=== PATIENT | male | born 1990 | race Caucasian/White ===

== ENCOUNTER 2016-10-20 10:44 | Emergency (ER) | payer SELFPAY ==
[2016-10-20] MEDS ORDERED: ONDANSETRON 2MG/ML, 2ML ONE (12:03)
[2016-10-20] MEDS ORDERED: HYDROmorphone 1 MG/ML, 1ML ONE (12:04)
[2016-10-20] MEDS ORDERED: MAALOX/HYOSCYAMINE/LIDOCAINE 45 ML BOTTLE ONE (15:31)
[2016-10-24 15:37] LABS: ASPARTATE AMINO TRANSFERASE 18 U/L (15-37); BLOOD UREA NITROGEN 13 mg/dL (7-18)
== END 2016-10-20 17:13 ==
LOC: ED 10:44
DX: K29.00 Acute gastritis without bleeding (principal); F17.210 Nicotine dependence, cigarettes, uncomplicated
CPT/HCPCS: 36415; 74176; 76700; 80053; 81003; 83690; 85025; 87086; 99285